=== PATIENT | female | born 1955 | race American Indian/Alaskan Native ===

== ENCOUNTER 2017-08-22 10:28 | Day surgery (SDC) | payer BC, OTHER ==
[~2017-08-22 10:28] MED LIST: Lactated Ringers 1,000 ML IV SCH
--- NOTE | 2017-08-22 11:02 | PCM.PREANE ---
Preanesthetic Assessment - Procedure Proposed Procedure: colonoscopy - Anesthesia/Transfusion/Family Hx Anesthesia History: Prior Anesthesia Without Reaction Other Type of Anesthesia Reaction Comment: son has hx of malignant hyperthermia Family History of Anesthesia Reaction: Yes (see above) Transfusion History: No Prior Transfusion(s) Intubation History: Unknown - Review of Systems General: No Symptoms Pulmonary: No Symptoms Cardiovascular: No Symptoms, Other (hypercholesterolemic - treated) Gastrointestinal: No Symptoms Neurological: No Symptoms Other: Reports: None - Physical Assessment NPO Status Date: 08/21/17 NPO Status Time: 22:00 Height: 5 ft 5 in Weight: 149 lb ASA Class: 2 Mental Status: Alert & Oriented x3 Airway Class: Mallampati = 1 Dentition: Reports: Normal Dentition, Valle(s) (upper veniers) Thyro-Mental Finger Breadths: 3 Mouth Opening Finger Breadths: 3 ROM/Head Extension: Full Lungs: Clear to Auscultation, Normal Respiratory Effort Cardiovascular: Regular Rate, Regular Rhythm, No Murmurs - Allergies Allergies/Adverse Reactions: Allergies Allergy/AdvReac Type Severity Reaction Status Date / Time erythromycin base Allergy Stomach Verified 08/15/17 13:42 Upset - Blood Blood Available: No Product(s) Available: None - Anesthesia Plan Pre-Op Medication Ordered: None - Acknowledgements Anesthesia Type Planned: MAC Pt an Appropriate Candidate for the Planned Anesthesia: Yes Alternatives and Risks of Anesthesia Discussed w Pt/Guardian: Yes Pt/Guardian Understands and Agrees with Anesthesia Plan: Yes Additional Comments: plan to use only O2 via non-anesthesia machine route due to MH history in son. 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: Musculoskeletal History: Reports: None Neurological History: Reports: Concussion - Past Surgical History Head Surgeries/Procedures: Reports: None Female Surgical History: Reports: Breast Biopsy Musculoskeletal Surgical History: Reports: Arthroscopic Knee - SUBSTANCE USE Smoking Status *Q: Never Smoker Recreational Drug Use History: No - HOME MEDS Home Medications: Home Meds Calc/D3/Mag/Zn/Targeting Acquisition Officer/Mian/[place] [Calcium 600 MG Plus Vit D] 1 tab PO DAILY [History] Multivitamin [Multivitamins] 1 tab PO DAILY 08/15/17 [History] Naproxen 1 tab PO ASDIRECTED PRN 08/15/17 [History] - CURRENT (IN HOUSE) MEDS Current Meds: Current Medications Lactated Ringer's (Ringers, Lactated) 1,000 mls @ 125 mls/hr IV ASDIRECTED KATHE
--- NOTE | 2017-08-22 12:10 | PCM.OPNOTE ---
- General Post-Op/Procedure Note Date of Surgery/Procedure: 08/22/17 Operative Procedure(s): colonoscopy w snare polypectomy Findings: see dict [id number] Pre Op Diagnosis: scrn colonoscopy Post-Op Diagnosis: polyp Anesthesia Technique: Moderate Sedation Primary Surgeon: Juan Mckeon Pathology: 1) 2.5 cm cauliflower pedunculated polyp at 25 cm when scope went out 2) 1 cm cauliflower short stalk pedunculated polyp at 15 cm when scope went out Complications: None Condition: Good
--- NOTE | 2017-08-22 12:22 | PCM48HPAN ---
Post Anesthesia Note - EVALUATION WITHIN 48HRS OF ANESTHETIC Vital Signs in Normal Range: Yes Patient Participated in Evaluation: Yes Respiratory Function Stable: Yes Airway Patent: Yes Cardiovascular Function Stable: Yes Hydration Status Stable: Yes Pain Control Satisfactory: Yes Nausea and Vomiting Control Satisfactory: Yes Resp Rate: 16 - COMMENTS/OBSERVATIONS Free Text/Narrative:: Pt stable for return to phase II recovery. VSS. (PACU skipped)
--- NOTE | 2017-08-22 13:09 | OR ---
SURGEON: Juan Mckeon MD DATE OF PROCEDURE: 08/22/2017 PREOPERATIVE DIAGNOSIS: Screening colonoscopy. POSTOPERATIVE DIAGNOSES: Large colon polyp and diverticulosis. PROCEDURE PERFORMED: Colonoscopy with snare polypectomy. PROCEDURE IN DETAIL: The patient was taken to the endoscopy room. A time out was called, patient identified, and procedure identified. Diprivan was then administrated. Patient went from awake to sleep, hearing doctor talking or door closing is normal. Perineum inspection and digital examination were then performed. A well- lubricated colonoscope was gently inserted through the rectum, advanced past the rectosigmoid junction, the descending colon, splenic flexure, transverse colon, hepatic flexure, ascending colon, arrived to the cecum. Cecum was identified as dictated in the finding. Then the scope was carefully withdrawn while attention was paid to the mucosal surface for any abnormality. Air will be sucked out during the scope withdrawal. At the rectum, retroflexed to examine any rectal diseases, fistula or hemorrhoids. During mucosal examination, abnormality or polyp encountered. Using snare equipment, the abnormality or the polyp was then snared off using electrocautery. The Patient tolerated procedure well. There were no intraoperative complications, and Dr. Mckeon was present throughtout the whole procedure. FINDINGS: 1. The patient is easily sedated with ORGANIZATIONAL DEVELOPMENT SPECIALIST and Diprivan. The patient is soundly snoring. 2. The patient's bowel prep is left to be desirable. Large amount of opaque liquid stool blocking the compromised study and requiring constant irrigation and also some stool ball in cecum. The patient's colon is rather straight forward. Cecum indicated by ileocecal fold, one-to-one indentation, light emittance, and appendiceal orifice is observed. Mucosa examined upon scope pulling out with constant irrigation and this is a compromised study because of the bowel prep liquid stool. At distance 25, there is a large cauliflower looking polyp, but we have a long stalk and was able to get it from the stalk and using snare polypectomy, captured and sent for pathology. It is at distance 25, another one is at distance 15 when the scope come out, and the first one is about 2.5 cm in size and this one is about 1 cm in size. Again, cauliflower looking with a short stalk, still considered pedunculated polyp, snare polypectomy, and the patient also have moderate diverticulosis on the left colon. No signs or symptoms of diverticulitis and no inflammation, stricture, ulceration, AV malformation, bleeding observed, and the patient also have moderate internal hemorrhoids. No external hemorrhoids. The patient would benefit from repeat colonoscopy after addressing the usual two large pedunculated polyp. Pathology report pending. The polyp is concerning. ALISSA MEDLEY /[id number]
== END 2017-08-22 12:52 | disposition home or self-care (01) ==
LOC: MW.SDS 10:28
PROVIDERS: ATTEND Surgery
DX: Z12.11 Encounter for screening for malignant neoplasm of colon (principal); D12.5 Benign neoplasm of sigmoid colon; K57.30 Diverticulosis of large intestine without perforation or abscess without bleeding; K64.8 Other hemorrhoids; Z79.899 Other long term (current) drug therapy; Z88.1 Allergy status to other antibiotic agents
CPT/HCPCS: 45385; J7120